=== PATIENT | male | born 1955 | race Caucasian/White ===

== ENCOUNTER 2019-06-16 12:29 | Inpatient (IN) | payer MEDICAID ==
[~2019-06-16] VITALS: Ht 175.3 cm; Wt 109.8 kg
[2019-06-16] MEDS ORDERED: ATOR80TA PO (12:34)
[2019-06-16] MEDS ORDERED: ESCI10TA PO (12:34)
[2019-06-16 13:27] LABS: BASOPHILS % 0.9 % (0.0-2.0); EOSINOPHILS % 1.2 % (0.0-5.0); HEMATOCRIT. 46.8 % (42.0-52.0); HEMOGLOBIN. 16.1 g/dL (14.0-18.0); LYMPHOCYTES % 22.5 % (20.0-50.0); MEAN CORPUSCULAR HEMOGLOBIN 30.5 pg (28.0-32.0); MEAN CORPUSCULAR VOLUME 88.9 fL (80.0-94.0); MEAN PLATELET VOLUME 9.2 fl (7.4-10.4); MONOCYTES % 7.4 % (2.0-8.0); PLATELET 199 x1000/uL (130-400); RED BLOOD CELL COUNT 5.27 mill/uL (4.7-6.1); RED CELL DISTRIBUTION WIDTH 13.3 % (11.6-14.6)
[2019-06-16 13:30] LABS: CHLORIDE 109 mEq/L (98-107)
[2019-06-16 13:57] LABS: INR 0.9; PARTIAL THROMBOPLASTIN TIME 27.5 sec (23.4-31.0); PROTHROMBIN TIME 10.1 sec (9.6-11.0)
[2019-06-16] MEDS ORDERED: IOHEXOL-350 100 ML BOTTLE ONE (14:44)
[2019-06-16] MEDS ORDERED: ASPIRIN 325MG EC TABLET PO ONE (14:45)
[2019-06-16 17:25] VITALS: BP 125/88
[2019-06-16 18:04] VITALS: BP 125/88
[2019-06-16] MEDS: CLOPIDOGREL 75MG TABLET PO SCH (18:04)
[2019-06-16 20:39] VITALS: BP 103/66
[2019-06-16] MEDS ORDERED: ENOXAPARIN 40MG/0.4ML SYR SUBCUT SCH (21:00)
[2019-06-17] VITALS: BP 112/70
[2019-06-17 04:00] VITALS: BP 100/66
[2019-06-17 05:48] LABS: BASOPHILS % 0.5 % (0.0-2.0); HEMATOCRIT. 45.3 % (42.0-52.0); HEMOGLOBIN. 15.2 g/dL (14.0-18.0); MEAN CORPUSCULAR HEMOGLOBIN 30.4 pg (28.0-32.0); MEAN CORPUSCULAR VOLUME 90.6 fL (80.0-94.0); MONOCYTES % 8.6 % (2.0-8.0); NEUTROPHILS % 54.9 % (40.0-76.0); PLATELET 179 x1000/uL (130-400); RED CELL DISTRIBUTION WIDTH 13.6 % (11.6-14.6)
[2019-06-17 06:00] LABS: CHLORIDE 110 mEq/L (98-107)
[2019-06-17] MEDS: CLOPIDOGREL 75MG TABLET PO SCH (08:03)
[2019-06-17 08:22] VITALS: BP 104/68
[2019-06-17 11:00] LABS: CLARITY URINE CLEAR (CLEAR); COLOR URINE YELLOW (YELLOW); KETONES URINE NEGATIVE (NEGATIVE); LEUKOCYTE ESTERASE URINE NEGATIVE (NEGATIVE); NITRITE URINE NEGATIVE (NEGATIVE); OCCULT BLOOD URINE NEGATIVE (NEGATIVE); PROTEIN URINE NEGATIVE (NEGATIVE); UROBILINOGEN URINE 0.2 E.U./dL (0.2-1.0)
[2019-06-17 11:25] LABS: *AMPHETAMINES SCREEN URINE NEGATIVE (NEGATIVE); *BARBITURATES SCREEN URINE NEGATIVE (NEGATIVE); *BENZODIAZEPINES SCREEN URINE NEGATIVE (NEGATIVE); *COCAINE SCREEN URINE NEGATIVE (NEGATIVE)
[2019-06-17 11:26] LABS: CANNABINOID URINE SCREEN NEGATIVE (NEGATIVE); METHADONE URINE SCREEN NEGATIVE (NEGATIVE); OPIATES URINE SCREEN NEGATIVE (NEGATIVE); PHENCYCLIDINE URINE SCREEN NEGATIVE (NEGATIVE)
[2019-06-17 12:11] VITALS: BP 101/63
[2019-06-17] MEDS ORDERED: ONDANSETRON HCL 4MG/2ML INJ IV PRN (12:30)
[2019-06-17] MEDS ORDERED: CLOP75TA4 MT (12:30)
[2019-06-17] MEDS ORDERED: ACETAMINOPHEN 325MG TABLET PO PRN (12:30)
[2019-06-17 16:00] VITALS: BP 101/63
[2019-06-17] MEDS ORDERED: GADOBENATE DIMEGLUMINE 529 MG/ML 10ML IV ONE (16:08)
[2019-06-17 20:00] VITALS: BP 109/63
[2019-06-17] MEDS ORDERED: ATORVASTATIN CALCIUM 40MG TABLET PO SCH (21:00)
[2019-06-17] MEDS: ENOXAPARIN 30MG/0.3ML SYR SUBCUT SCH (22:04)
[2019-06-18] VITALS: BP 110/73
[2019-06-18 04:00] VITALS: BP 107/72
[2019-06-18 07:42] VITALS: BP 113/69
[2019-06-18] MEDS: ENOXAPARIN 30MG/0.3ML SYR SUBCUT SCH (08:06)
[2019-06-18] MEDS: CLOPIDOGREL 75MG TABLET PO SCH (08:06)
[2019-06-18 11:55] VITALS: BP 115/65
[2019-06-18] MEDS ORDERED: ASPI-1497 MT (13:41)
[2019-06-18] MEDS ORDERED: CLOP75TA4 MT (13:41)
[2019-06-18 13:57] VITALS: BP 115/65
[2019-06-18 16:21] VITALS: BP 98/64
== END 2019-06-18 17:20 | disposition home health service (06) | DRG 45 ==
LOC: ER 12:54 → 6WST 16:14 → ENRESERV 16:29 → 7WST 06-18 11:24
PROVIDERS: ADMIT Internal Medicine; ATTEND Internal Medicine
PROC: 5A09357 Assistance with Respiratory Ventilation, Less than 24 Consecutive Hours, Continuous Positive Airway Pressure (ICD-10-PCS; 2019-06-17)
PROC: 4A00X4Z Measurement of Central Nervous Electrical Activity, External Approach (ICD-10-PCS; principal; 2019-06-18)
DX: I63.9 Cerebral infarction, unspecified (principal); E66.01 Morbid (severe) obesity due to excess calories; E87.8 Other disorders of electrolyte and fluid balance, not elsewhere classified; Z68.35 Body mass index [BMI] 35.0-35.9, adult; E78.5 Hyperlipidemia, unspecified; F17.210 Nicotine dependence, cigarettes, uncomplicated; E78.00 Pure hypercholesterolemia, unspecified; I10 Essential (primary) hypertension; Z60.2 Problems related to living alone; F32.9 Major depressive disorder, single episode, unspecified; G81.91 Hemiplegia, unspecified affecting right dominant side; Z79.899 Other long term (current) drug therapy; Z71.3 Dietary counseling and surveillance
CPT/HCPCS: 36415; 70496; 70498; 70544; 70551; 70552; 71045; 80048; 80053; 80061; 80305; 81003; 83880; 84443; 84484; 85025; 93005; 93306; 94660; 95816; 96372; 97116; 97162; 97166; 99285; A9577; J1650; Q9967

== ENCOUNTER 2022-08-29 05:32 | Emergency (ER) | payer MEDICAID, MEDICARE ==
[~2022-08-29] VITALS: Ht 172.7 cm; Wt 107.0 kg
[~2022-08-29 05:32] MED LIST: ASPI-1497 MT; ATOR80TA PO; CLOP-31 MT; ESCI10TA PO
[2022-08-29 05:56] VITALS: BP 120/78
[2022-08-29] MEDS ORDERED: AMOX1TAB16 PO (07:24)
[2022-08-29] MEDS ORDERED: IBUP-2030 PO (07:24)
== END 2022-08-29 07:59 | disposition home or self-care (01) ==
LOC: ER 05:32
DX: K04.7 Periapical abscess without sinus (principal); Z79.899 Other long term (current) drug therapy
CPT/HCPCS: 99281; 99283

== ENCOUNTER 2024-09-23 05:06 | Inpatient (IN) | payer MEDICARE, OTHER ==
[~2024-09-23] VITALS: Ht 172.7 cm; Wt 70.3 kg
[~2024-09-23 05:06] MED LIST changes: +AMOX1TAB16 PO; +ATOR-388 PO; -ATOR80TA PO; +IBUP-2030 PO
[2024-09-23 06:33] LABS: HEMATOCRIT. 45.9 % (42.0-52.0); HEMOGLOBIN. 15.1 g/dL (14.0-18.0); MEAN PLATELET VOLUME 9.8 fl (7.4-10.4); PLATELET 120 x1000/uL (130-400); RED BLOOD CELL COUNT 5.20 mill/uL (4.7-6.1); RED CELL DISTRIBUTION WIDTH 14.7 % (11.6-14.6)
[2024-09-23 06:50] LABS: CREATININE 1.1 mg/dL (0.6-1.3); UREA NITROGEN BLOOD 11 mg/dL (9-23)
[2024-09-23 06:51] LABS: TROPONIN I HIGH SENSITIVITY < 4 ng/L (3.0-53)
[2024-09-23] MEDS: ONDANSETRON HCL 4MG/2ML INJ IV STA (06:56)
[2024-09-23] MEDS: SODIUM CHLORIDE 0.9% 1,000 ML IV ONE (07:00)
[2024-09-23 07:40] LABS: EOSINOPHILS % MANUAL 1.0 % (0.0-5.0); LYMPHOCYTES % MANUAL 28.0 % (20.0-50.0); MONOCYTES % MANUAL 6.0 % (2.0-8.0); NEUTROPHILS % MANUAL 65.0 % (45.0-75.0)
[2024-09-23 07:41] LABS: PLATELET ESTIMATE SLIGHTLY DECREASED
[2024-09-23 08:05] VITALS: BP 123/63; PULSE 62; RESP 16; TEMP 36.5
[2024-09-23] MEDS ORDERED: ONDANSETRON HCL 4MG/2ML INJ IV PRN (09:15)
[2024-09-23] MEDS ORDERED: DOCUSATE SODIUM 100MG CAPSULE PO PRN (09:15)
[2024-09-23] MEDS ORDERED: HYDRALAZINE 20MG/ML VIAL IV PRN (09:15)
[2024-09-23] MEDS ORDERED: ACETAMINOPHEN 325MG TABLET PO PRN ×2 (09:15)
[2024-09-23] MEDS ORDERED: IPRATROPIUM/ALBUTEROL 0.5-3(2.5)MG/3ML NEB HHN PRN (09:15)
[2024-09-23] MEDS: ENOXAPARIN 40MG/0.4ML SYR SUBCUT SCH (10:48)
[2024-09-23] MEDS: PANTOPRAZOLE SODIUM 40 MG/VIAL IV SCH (10:48)
[2024-09-23] MEDS: ASPIRIN 81MG TABLET PO SCH (10:49)
[2024-09-23] MEDS ORDERED: ATROPINE SULFATE 1MG/10ML SYR IV PRN (11:00)
[2024-09-23 12:37] VITALS: BP 114/45; PULSE 67; RESP 20; TEMP 37.1; O2SAT 20
[2024-09-23 13:12] LABS: INR 1.1
[2024-09-23 13:16] LABS: ETHANOL BLOOD < 10 mg/dL (<10)
[2024-09-23 13:17] LABS: TROPONIN I HIGH SENSITIVITY 4 ng/L (3.0-53)
[2024-09-23 13:21] LABS: T4 FREE 1.33 ng/dL (0.89-1.76)
[2024-09-23 16:00] VITALS: BP 100/55; PULSE 54; RESP 18; TEMP 37; O2SAT 98
[2024-09-23 17:17] VITALS: BP 100/55; PULSE 54; RESP 18; TEMP 37; O2SAT 98
[2024-09-23 18:15] LABS: CREATINE KINASE MB FRACTION 2.8 ng/mL (0.5-3.6); TROPONIN I HIGH SENSITIVITY 4.0 ng/L (3.0-53)
[2024-09-23 19:18] LABS: CLARITY URINE CLEAR (CLEAR); COLOR URINE YELLOW (YELLOW); GLUCOSE URINE NEGATIVE (NEGATIVE); KETONES URINE NEGATIVE (NEGATIVE); LEUKOCYTE ESTERASE URINE NEGATIVE (NEGATIVE); NITRITE URINE NEGATIVE (NEGATIVE); OCCULT BLOOD URINE NEGATIVE (NEGATIVE); PH URINE 8.0 (4.5-8.0); PROTEIN URINE NEGATIVE (NEGATIVE); SPECIFIC GRAVITY URINE 1.009 (1.005-1.030); UROBILINOGEN URINE 0.2 E.U./dL (0.2-1.0)
[2024-09-23 19:32] LABS: *AMPHETAMINES SCREEN URINE NEGATIVE (NEGATIVE); *BENZODIAZEPINES SCREEN URINE NEGATIVE (NEGATIVE)
[2024-09-23 19:33] LABS: *BARBITURATES SCREEN URINE NEGATIVE (NEGATIVE); *COCAINE SCREEN URINE NEGATIVE (NEGATIVE); CANNABINOID URINE SCREEN NEGATIVE (NEGATIVE); ECSTASY MDMA SCREEN URINE NEGATIVE (NEGATIVE); METHADONE URINE SCREEN NEGATIVE (NEGATIVE); OPIATES URINE SCREEN NEGATIVE (NEGATIVE); PHENCYCLIDINE URINE SCREEN NEGATIVE (NEGATIVE)
[2024-09-23 20:00] VITALS: BP 98/49; PULSE 65; RESP 18; TEMP 36.5; O2SAT 98
[2024-09-23] MEDS: ATORVASTATIN CALCIUM 40MG TABLET PO SCH (22:44)
[2024-09-23] MEDS: IOHEXOL-350 100 ML BOTTLE ONE (22:52)
[2024-09-24] VITALS: BP 94/50; PULSE 74; RESP 17; TEMP 37.1; O2SAT 96
[2024-09-24 00:56] LABS: CREATINE KINASE MB FRACTION 1.9 ng/mL (0.5-3.6); TROPONIN I HIGH SENSITIVITY 6.0 ng/L (3.0-53)
[2024-09-24 04:00] VITALS: BP 106/58; PULSE 81; RESP 18; TEMP 36.8; O2SAT 98
[2024-09-24 07:46] LABS: BASOPHILS % 0.3 % (0.0-2.0); EOSINOPHILS % 0.4 % (0.0-5.0); HEMATOCRIT. 44.3 % (42.0-52.0); HEMOGLOBIN. 14.7 g/dL (14.0-18.0); LYMPHOCYTES % 30.3 % (20.0-50.0); MEAN PLATELET VOLUME 9.9 fl (7.4-10.4); MONOCYTES % 11.0 % (2.0-8.0); NEUTROPHILS % 58.0 % (40.0-76.0); PLATELET 116 x1000/uL (130-400); RED BLOOD CELL COUNT 5.06 mill/uL (4.7-6.1); RED CELL DISTRIBUTION WIDTH 14.3 % (11.6-14.6)
[2024-09-24 07:51] LABS: INR 1.0
[2024-09-24 08:00] VITALS: BP 98/60; PULSE 64; RESP 18; TEMP 36.2; O2SAT 100
[2024-09-24 08:10] LABS: CREATININE 1.0 mg/dL (0.6-1.3); TRIGLYCERIDE 76 mg/dL (0-150); UREA NITROGEN BLOOD 13 mg/dL (9-23)
[2024-09-24 08:11] LABS: ASPARTATE AMINOTRANSFERASE 18 IU/L (<34); LDL CHOLESTEROL 119 mg/dL (5-100)
[2024-09-24 08:12] LABS: BILIRUBIN DIRECT 0.4 mg/dL (<=3.0); BILIRUBIN TOTAL 1.7 mg/dL (0.1-1.0); PHOSPHORUS 3.1 mg/dL (2.5-4.9); PROTEIN TOTAL 5.7 g/dL (6.0-8.3)
[2024-09-24 12:00] VITALS: BP 99/60; PULSE 76; RESP 18; TEMP 36.1; O2SAT 100
[2024-09-24 16:00] VITALS: BP 101/64; PULSE 78; RESP 18; TEMP 36.1; O2SAT 100
[2024-09-25] VITALS: BP 117/75; PULSE 57; RESP 18; TEMP 36.6; O2SAT 98
[2024-09-25 04:00] VITALS: BP 103/67; PULSE 63; RESP 16; TEMP 36.4; O2SAT 98
[2024-09-25 08:00] VITALS: BP 115/65; PULSE 62; RESP 18; TEMP 36.3; O2SAT 96
[2024-09-25 12:00] VITALS: BP 101/61; PULSE 54; RESP 18; TEMP 36.4; O2SAT 98
[2024-09-25 16:00] VITALS: BP 110/57; PULSE 66; RESP 18; TEMP 36.4; O2SAT 98
[2024-09-25 20:00] VITALS: BP_SYST 91; BP_SYST 92; BP_SYST 95; BP_DIAS 57; BP_DIAS 60; BP_DIAS 62; PULSE 58; RESP 18; TEMP 36.3; O2SAT 96
[2024-09-26] VITALS: BP 105/64; PULSE 65; RESP 20; TEMP 36.3; O2SAT 98
[2024-09-26 04:00] VITALS: BP 104/59; PULSE 60; RESP 20; TEMP 37; O2SAT 99
[2024-09-26 07:59] VITALS: BP 112/61; PULSE 64; RESP 20; TEMP 36.3; O2SAT 99
[2024-09-26 11:50] VITALS: BP 96/52; PULSE 50; RESP 18; TEMP 36.3; O2SAT 97
[2024-09-26 15:18] VITALS: BP 129/80; PULSE 69; TEMP 96.3; O2SAT 97
[2024-09-26 15:45] VITALS: BP 99/58; PULSE 59; RESP 19; TEMP 36.3; O2SAT 97
== END 2024-09-26 18:07 | disposition home health service (06) | DRG 74 ==
LOC: ER 05:06 → EDBEDREQ 05:26 → 7WST 06:32 → EDBEDREQ 06:33 → ENRESERV 07:06
PROVIDERS: ADMIT Internal Medicine; ATTEND Internal Medicine
PROC: 4A00X4Z Measurement of Central Nervous Electrical Activity, External Approach (ICD-10-PCS; principal; 2024-09-24)
DX: G90.89 Other disorders of autonomic nervous system (principal); R60.0 Localized edema; R00.1 Bradycardia, unspecified; D69.6 Thrombocytopenia, unspecified; J34.89 Other specified disorders of nose and nasal sinuses; R79.89 Other specified abnormal findings of blood chemistry; R59.0 Localized enlarged lymph nodes; F41.9 Anxiety disorder, unspecified; I10 Essential (primary) hypertension; Z87.891 Personal history of nicotine dependence; Z85.828 Personal history of other malignant neoplasm of skin; Z86.73 Personal history of transient ischemic attack (TIA), and cerebral infarction without residual deficits
CPT/HCPCS: 36415; 70551; 71045; 71275; 73620; 80048; 80061; 80076; 80305; 80320; 81003; 82247; 82550; 82553; 83735; 83880; 84100; 84439; 84443; 84480; 84484; 85025; 85379; 93005; 93306; 93880; 93970; 95816; 97116; 97161; 99285; J1650; J2405; J2470; J7030; Q9967; G0480